=== PATIENT | male | born 1960 | race Caucasian/White ===

== ENCOUNTER → 2018-10-05 | Outpatient (CLI) | payer OTHER ==
[~2018-10-05] MED LIST: ASPIRIN325 PO; BENZONATATE200 MG PO; CHEST CONGESTI400 MG PO; DEPO-TESTO200 MG/1 M IM; DICLOFONO2.5 GM TOP; EFFIENT10 MG PO; GLIPIZIDE XL10 MG PO; GLUCOPHAGE1000 MG PO; GLUCOPHAGE500 MG PO; LISINOPRIL10 MG PO; LISINOPRIL20 MG PO; LOPRESSOR25 PO; NITROGLYCERIN0.4 MG SUBLING; NORCO 7.5-3251 EACH PO; PRINIVIL5 MG PO; PROTONIX40 M1 PO; SIMVASTATIN10 MG PO; VIAGRA50 MG PO; ZOCOR40 MG PO
== END ==
LOC: M.MRI 07:08
DX: S83.272A Complex tear of lateral meniscus, current injury, left knee, initial encounter (principal); S83.242A Other tear of medial meniscus, current injury, left knee, initial encounter; M17.12 Unilateral primary osteoarthritis, left knee; X58.XXXA Exposure to other specified factors, initial encounter; Y93.89 Activity, other specified; Y92.89 Other specified places as the place of occurrence of the external cause; Y99.8 Other external cause status

== ENCOUNTER 2018-10-13 14:05 | Observation (INO) | payer OTHER ==
[~2018-10-13] VITALS: Ht 170.2 cm; Wt 129.3 kg
[~2018-10-13 14:05] MED LIST changes: -CHEST CONGESTI400 MG PO; -NORCO 7.5-3251 EACH PO
[2018-10-13 14:11] VITALS: BP 142/88
[2018-10-13] MEDS ORDERED: NORCO 7.5-3251 EACH PO (14:15)
[2018-10-13 14:36] LABS: ABSOLUTE BASOPHILS 0.1 thou/uL (0.0-0.2); ABSOLUTE EOSINOPHILS 0.2 thou/uL (0.0-0.7); ABSOLUTE LYMPHOCYTES 2.2 thou/uL (0.8-5.3); ABSOLUTE MONOCYTES 0.6 thou/uL (0.0-1.2); ABSOLUTE NEUTROPHILS 4.1 thou/uL (1.6-8.1); BASOPHILS 0.9 %; EOSINOPHILS 3.3 %; HEMATOCRIT 46.1 % (42.0-52.0); HEMOGLOBIN 15.3 gm/dL (14.0-18.0); LYMPHOCYTES 29.8 %; MCH 31.5 pg (26.0-34.0); MCHC 33.2 g/dL (28.0-37.0); MCV 94.8 fL (80.0-100.0); MONOCYTES 8.6 %; MPV 9.3 fl. (7.2-11.1); NUCLEATED RBCS 0 /100WBC; PLATELET COUNT* 217 thou/uL (150-400); POLYS 57.4 %; RBC 4.86 mil/uL (4.50-6.00); RDW-CV 13.7 % (10.5-14.5); WBC 7.2 thou/uL (4.0-11.0)
[2018-10-13 14:53] LABS: ANION GAP 11 mmol/L (7-16); BUN 14 mg/dL (7-18); CALCIUM 9.2 mg/dL (8.5-10.1); CHLORIDE 100 mmol/L (98-107); CO2 26 mmol/L (21-32); CREATININE 0.9 mg/dL (0.6-1.3); GLUCOSE 235 mg/dL (70-99); POTASSIUM 4.3 mmol/L (3.5-5.1); SODIUM 137 mmol/L (136-145)
[2018-10-13 15:04] LABS: ALBUMIN 3.8 g/dL (3.4-5.0); ALKALINE PHOSPHATASE 54 U/L (46-116); LIPASE 122 U/L (73-393); MAGNESIUM 1.7 mg/dL (1.8-2.4); NT-PRO BRAIN NAT PEPTIDE 27 pg/mL (<300); SGOT 18 U/L (15-37); SGPT 39 U/L (30-65); TOTAL BILIRUBIN 0.2 mg/dL (<0.1-1.0); TOTAL PROTEIN 7.7 g/dL (6.4-8.2); TROPONIN-I LEVEL <0.06 ng/mL (<0.06)
[2018-10-13 16:07] LABS: APTT 27.3 Seconds (25.0-31.3); PROTIME 10.3 Seconds (9.20-11.50)
--- NOTE | 2018-10-13 17:35 | EKG ---
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
[2018-10-13 18:49] VITALS: BP 149/79
[2018-10-14] VITALS: BP 127/47
--- NOTE | 2018-10-14 01:15 | NUR ---
PT ALERT ORIENTED. UP AD HUMBERTO IN ROOM. PT RATED PAIN IN CHEST 4/10. HYDROCODONE GIVEN. PT RESTING QUIETLY. BREATH SOUNDS CLEAR. ON RA. TELEMETRY SHOWS SR.
[2018-10-14 04:00] VITALS: BP 118/73
[2018-10-14 08:19] VITALS: BP 127/63
[2018-10-14] MEDS ORDERED: CHEST CONGESTI400 MG PO (08:54)
[2018-10-14 12:35] VITALS: BP 107/69
--- NOTE | 2018-10-14 15:37 | CON ---
[address] [address] CONSULTATION Name: BEBETO BADILLO Room: [address] IN .R.#: [id number] Admission: 10/13/18 Attend Phys: Matt Hein MD Discharge: Date of : 64 Report #: [id number] THIS REPORT FOR: //name// CC: Matt Hein NO PCP DATE OF SERVICE: 10/14/2018 HISTORY OF PRESENT ILLNESS: The patient is a 58-year-old single white male who I was asked to see in the hospital today after he complained of chest pain. The patient apparently underwent coronary artery stenting here in [place] in 2012 when he was seen by Dr. Bolivar. He actually notes he had a repeat heart catheterization about 3 years ago at [facility] by Dr. Singer and told there was no significant restenosis of the stents. He notes that recently, he has had occasional chest pain. He described it as a sharp pain in his chest. It occurs almost every day. It is not related to exertion, meals or lifting. He does become short of breath with exertion. He has had a cough, but no bleeding. Denied any trauma to his chest. He denied palpitations. Apparently recently, he was driving his vehicle and had a brief loss of consciousness. He currently is scheduled to undergo knee surgery in a couple of weeks. As part of his preoperative evaluation, he was noted to have an abnormal ECG. He was admitted. I was asked to see him for further evaluation and treatment. PAST MEDICAL HISTORY: Significant for previous tonsillectomy, hypertension, diabetes, hyperlipidemia. MEDICATIONS: Include aspirin, glipizide, lisinopril, metformin, metoprolol, Protonix, simvastatin. ALLERGIES: He has no known drug allergies. FAMILY HISTORY: Positive for heart disease. SOCIAL HISTORY: He is single, never been . 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 Occasionally drinks alcohol. REVIEW OF SYSTEMS: He is overweight, being 5 feet 7 inches, weighing 280 pounds. He has no history of stroke, asthma, peptic ulcer disease, liver disease, kidney disease, cancer or psychiatric illness. PHYSICAL EXAMINATION: GENERAL: Revealed a large middle-aged male lying in bed, he appeared in no distress. VITAL SIGNS: He had a blood pressure 130/80, pulse 80. He is afebrile. HEENT: He was anicteric. Conjunctivae pink. Mucous [place] [address] CONSULTATION Name: BEBETO BADILLO Room: [address]#: [id number] Admission: 10/13/18 Attend Phys: Matt Hein MD Discharge: Date of : 64 Report #: [id number] NECK: Veins are difficult to assess due to obesity. No carotid bruits. CHEST: Clear to auscultation. CARDIAC: Regular rate and rhythm without murmur or rub. ABDOMEN: Obese, nontender. EXTREMITIES: Had no edema. Posterior tibial pulse 2+ bilaterally. SKIN: Warm, dry. NEUROLOGIC: Nonfocal. LYMPHATIC: No adenopathy. MUSCULOSKELETAL: No joint effusion. LABORATORY DATA: His ECG showed a sinus rhythm with a right bundle branch block and a left anterior fascicular block. His workup so far, he had a chest x-ray performed in the Emergency Room yesterday that showed normal heart size, clear lung ordaz. LABORATORY DATA: Potassium 4.3, creatinine 0.9. Liver function studies were normal. Troponin 0.06. His white blood cell count 7.2, hemoglobin 15.3. IMPRESSION AND RECOMMENDATIONS: 1. Chest pain. Atypical for angina. Recommend dobutamine stress echo. 2. Coronary artery disease. Previous stent. The patient is on an aspirin a day. 3. Diabetes. 4. Hyperlipidemia. The patient is on a statin drug. 5. Hypertension. The patient is on an DONNIE inhibitor and beta fidencio. 6. Obesity. 7. Degenerative joint disease. I would hold off knee surgery until after his cardiac evaluation. <ELECTRONICALLY SIGNED> By: Elder Harris MD, [facility] 10/14/18 1537 0823 1032Dotoniel Harris MD, [facility] /nt
[2018-10-14 16:11] VITALS: BP 107/69
--- NOTE | 2018-10-14 17:05 | EXE ---
[place] [address] STRESS ECHOCARDIOGRAM Name: BEBETO BADILLO Room: [address] IN [facility]#: [id number] Admission: 10/13/18 Attend Phys: aMtt Hein, Discharge: Date of : 64 Date of Service: 10/14/18 1705 Report #: [id number] THIS REPORT FOR: //name// APPROVED REPORT Study performed: 10/14/2018 15:00:27 Exam: Dobutamine Stress Echo Indication: Chest pain, Abnormal EKG Patient Location: In-Patient Stress Nurse: Re Feng RN Room #: [facility] Supervising Physician: Elder Harris MD Status: routine Ht: 5 ft 7 in HR: 72 bpm BP: 129/91 mmHg Rhythm: NSR Medical History Medical History: CAD s/p stent Allergies: No known drug allergies Cardiac Risk Factors: FHX of CAD, HTN, Hyperlipidemia, DM Previous Cardiac Procedures: PCI Procedure The patient underwent a Pharmacological Stress Test using Dobutamine. Blood pressure, heart rate, and EKG were monitored. An Echocardiogram was performed by log data technician in four stages in quad fashion. At peak stress, four selected images were obtained and placed side by side with resting images for comparison. Echo Enhancing Agent Indication: Endocardial border delineation Agent(s) / Amount(s) Used: Optison 10 cc Stress Test Details Stress Test: Pharmacological Stress Test using Dobutamine. Reason for pharmacologic stress test: physical limitation. HR Resting HR: 72 bpm Max Heart Rate (APMHR): 164 bpm Max HR Achieved: 143 bpm Target HR (85% APMHR): 139 bpm % of APMHR: 87 Recovery HR: 98 [place] [address] STRESS ECHOCARDIOGRAM Name: BEBETO BADILLO Room: [address]#: [id number] Admission: 10/13/18 Attend Phys: Matt Hein, Discharge: Date of : 64 Date of Service: 10/14/18 1705 Report #: [id number] HR response to stress: Normal HR response to stress BP Resting BP: 129/91 mmHg Max BP: 186/71 mmHg Recovery BP: 139/93 mmHg BP response to stress: Normal blood pressure response to stress. ECG Resting ECG: Sinus Rhythm, nonspecific ST-T abnormalities Stress ECG: Sinus Rhythm, nonspecific ST-T abnormalities ST Change: Normal Maximum ST Deviation: 0 mm Arrhythmia: None Recovery ECG: Sinus Rhythm, nonspecific ST-T abnormalities Recovery ST Change: Normal Recovery ST Deviation: 0 mm Recovery Arrhythmia: None Clinical Reason for Termination: Completed protocol Stress Symptoms: Chest pain Pre-Stress Echo The resting Echocardiogram showed normal left ventricular contractility with an estimated Ejection Fraction of about 55-60%. Post-Stress Echo The stress Echocardiogram showed normal left ventricular contractility with an estimated Ejection Fraction of about >70%. Conclusion Clinical Response: Indeterminant Stress ECG Response: Indeterminant Stress Echo Images: Non-ischemic low risk dobutamine stress echo for future cardiac events Other Information Study Quality: Fair Technically limited study due [place] [address] STRESS ECHOCARDIOGRAM Name: BEBETO BADILLO Room: [address]#: [id number] Admission: 10/13/18 Attend Phys: Matt Hein, Discharge: Date of : 64 Date of Service: 10/14/181704 Report #: [id number] <Conclusion> low risk dobutamine stress echo for future cardiac events <ELECTRONICALLY SIGNED> By: Elder Harris MD, FACC 10/14/181704 04 04 Elder Harris MD, FACC /INF
== END 2018-10-14 17:27 | disposition home or self-care (01) ==
LOC: M.ERS 14:05 → M.TBA-ER 15:48 → M.2W 15:48
PROVIDERS: Emergency Medicine Emergency Medical Services; ADMIT Internal Medicine
DX: J40 Bronchitis, not specified as acute or chronic (principal); I25.10 Atherosclerotic heart disease of native coronary artery without angina pectoris; I10 Essential (primary) hypertension; M17.12 Unilateral primary osteoarthritis, left knee; E11.9 Type 2 diabetes mellitus without complications; E78.5 Hyperlipidemia, unspecified; R94.31 Abnormal electrocardiogram [ECG] [EKG]; E66.9 Obesity, unspecified; M19.90 Unspecified osteoarthritis, unspecified site; Z98.890 Other specified postprocedural states; Z79.84 Long term (current) use of oral hypoglycemic drugs; Z79.82 Long term (current) use of aspirin; Z95.5 Presence of coronary angioplasty implant and graft; Z79.899 Other long term (current) drug therapy; Z87.891 Personal history of nicotine dependence; Z72.89 Other problems related to lifestyle; Z68.41 Body mass index [BMI] 40.0-44.9, adult

== ENCOUNTER → 2018-10-25 | Outpatient (CLI) | payer OTHER ==
[2018-10-13 08:48] LABS: URINE BILIRUBIN NEGATIVE (Negative); URINE BLOOD NEGATIVE (Negative); URINE CLARITY CLEAR; URINE COLOR YELLOW; URINE GLUCOSE-RANDOM 3+ (Negative); URINE KETONES NEGATIVE (Negative); URINE LEUKOCYTES-REFLEX NEGATIVE (Negative); URINE NITRITE-REFLEX NEGATIVE (Negative); URINE PROTEIN NEGATIVE (Negative); URINE UROBILINOGEN 0.2 E.U./dl (0.2-1.0)
[2018-10-13 08:48] LABS: HEMATOCRIT 46.7 % (42.0-52.0); HEMOGLOBIN 15.6 gm/dL (14.0-18.0); MCH 31.7 pg (26.0-34.0); MCHC 33.4 g/dL (28.0-37.0); MPV 9.4 fl. (7.2-11.1); RBC 4.91 mil/uL (4.50-6.00); RDW-CV 13.6 % (10.5-14.5); WBC 7.3 thou/uL (4.0-11.0)
[2018-10-13 09:07] LABS: ALBUMIN 3.6 g/dL (3.4-5.0); CALCIUM 8.9 mg/dL (8.5-10.1); CREATININE 0.9 mg/dL (0.6-1.3); POTASSIUM 4.1 mmol/L (3.5-5.1); TOTAL BILIRUBIN 0.3 mg/dL (<0.1-1.0); TOTAL PROTEIN 7.6 g/dL (6.4-8.2)
[~2018-10-25] VITALS: Ht 170.2 cm; Wt 127.9 kg
[~2018-10-25] MED LIST changes: +CHEST CONGESTI400 MG PO; +NORCO 7.5-3251 EACH PO
--- NOTE | ~2018-10-25 | EKG ---
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: : 1960 Requested By: Raymundo Anthony Order Number: [id number] Reading MD: Measurements Intervals [place] Rate: 74 P: -26 IN: 207 QRS: -37 QRSD: 133 T: -4 QT: 376 QTc: 418 Interpretive Statements Sinus rhythm Borderline prolonged IN interval Probable left atrial enlargement Right bundle branch block Left ventricular hypertrophy Inferior infarct, old Lateral infarct, acute Anterior ST elevation, probably due to LVH Compared to ECG 11/16/2013 07:45:00 Left ventricular hypertrophy now present Myocardial infarct finding now present ST (T wave) deviation now present [email or web address] By: 0914 0914 Epiphany Epiphany, /EPI
== END ==
LOC: M.PRE → M.LAB 08:11 → M.PRE 09:01 → EDSTATUS 11:20 → M.PRE 11:46
PROVIDERS: Orthopaedic Surgery
DX: Z01.818 Encounter for other preprocedural examination (principal); M17.12 Unilateral primary osteoarthritis, left knee; I51.7 Cardiomegaly; I45.10 Unspecified right bundle-branch block; I25.2 Old myocardial infarction

== ENCOUNTER → 2018-10-31 | Outpatient (CLI) | payer OTHER ==
[~2018-10-31] MED LIST changes: +LANTUS100 UNIT/M SUBQ
== END ==
LOC: M.RAD 12:53
DX: J40 Bronchitis, not specified as acute or chronic (principal); J98.4 Other disorders of lung

== ENCOUNTER → 2018-11-02 | Outpatient (CLI) | payer OTHER ==
[2018-11-02] VITALS (7 sets, daily range): BP systolic 95–117; BP diastolic 57–73
[~2018-11-02] VITALS: Ht 170.2 cm; Wt 130.6 kg
[2018-11-02 08:09] LABS: HEMATOCRIT 46.9 % (42.0-52.0); HEMOGLOBIN 16.1 gm/dL (14.0-18.0); MCH 31.8 pg (26.0-34.0); MCHC 34.3 g/dL (28.0-37.0); MCV 92.8 fL (80.0-100.0); MPV 9.7 fl. (7.2-11.1); RBC 5.05 mil/uL (4.50-6.00); RDW-CV 13.5 % (10.5-14.5); WBC 7.8 thou/uL (4.0-11.0)
[2018-11-02 08:19] LABS: ANION GAP 7 mmol/L (7-16); APTT 26.2 Seconds (25.0-31.3); BUN 20 mg/dL (7-18); CALCIUM 9.3 mg/dL (8.5-10.1); CHLORIDE 100 mmol/L (98-107); CO2 25 mmol/L (21-32); CREATININE 0.9 mg/dL (0.6-1.3); GLUCOSE 207 mg/dL (70-99); POTASSIUM 4.2 mmol/L (3.5-5.1); PROTIME 10.4 Seconds (9.20-11.50); SODIUM 132 mmol/L (136-145)
[2018-11-02 08:32] LABS: ALBUMIN 3.6 g/dL (3.4-5.0); ALKALINE PHOSPHATASE 45 U/L (46-116); SGOT 20 U/L (15-37); SGPT 31 U/L (30-65); TOTAL BILIRUBIN 0.2 mg/dL (<0.1-1.0); TOTAL PROTEIN 7.5 g/dL (6.4-8.2)
[2018-11-02 09:07] LABS: CHOLESTEROL 193 mg/dL (<200); HDL CHOLESTEROL 47 mg/dL (>40); LDL CHOLESTEROL 114 mg/dL (<100); TC:HDL 4.1 Ratio (Not establshd); TRIGLYCERIDE 160 mg/dL (<150); VLDL 32 mg/dL (<40)
[2018-11-02 09:18] LABS: SERUM ASSESSMENT Clear
--- NOTE | 2018-11-02 10:16 | EKG ---
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 11/02/18 1016 0810 0810 Elder Harris MD, FACC /EPI
--- NOTE | 2018-11-02 11:10 | CARD ---
[address] [address] CARDIAC CATH REPORT Name: BEBETO BADILLO Room: [facility]#: [id number] Admission: 11/02/18 Attend Phys: Elder Harris MD, F Discharge: Date of : 64 Report #: [id number] THIS REPORT FOR: //name// APPROVED REPORT Study performed: 11/02/2018 08:08:34 Patient Details Patient Status: Out-Patient Room #: The patient is a 58 year-old male Event Personnel Elder Harris Meter Reader Chief, Adelaida Morales RN Associate Application Developer, Carole Ramey RTR Monitor, Josefa Holley Scrub Procedures Performed Art Access - R femoral artery* Left Heart Cath w/or w/o Coronaries LHC Hemostasis w/ Mynx Indication Chest pain Risk Factors Arterial Hypertension, Hypercholesterolemia, Coronary Artery Disease, Diabetes Previous Procedures/Diagnoses Previous PCI Procedure Narrative The patient was brought electively to the Cardiac Catheterization Laboratory and was prepped and draped in a sterile manner. The right femoral was infiltrated with 2% Lidocaine subcutaneous anesthesia. A 6fr Ultimum Sheath sheath was inserted into the right femoral artery. Coronary angiography was performed using coronary diagnostic catheters. The right coronary system was accessed and visualized with a Diagnostic 6Fr JR4 catheter. The left coronary system was accessed and visualized with a Diagnostic 6Fr JL4 catheter. The left ventricle was accessed and visualized with a Diagnostic 6Fr angled pigtail catheter. Left ventricular/Aortic Valve gradient assessed via catheter pullback. Left ventriculogram was performed in ANNE projection. Pre-demployment femoral angiogram was performed . Closure device was deployed with a 6 Fr Mynx 6Fr/7Fr. The patient tolerated the procedure well and there [place] [address] CARDIAC CATH REPORT Name: JUSTINOBEBETO Room: [facility]#: [id number] Admission: 11/02/18 Attend Phys: Elder Harris MD, F Discharge: Date of : 64 Report #: [id number] the procedure. There was no hematoma. Attempted procedure from the right radial artery. A catheter was advanced into the ascending aorta. However, because of severe tortuosity of the ascending aorta, the catheter could not be torqued easily. Therefore, further efforts were abandoned, and the procedure was performed from the right femoral artery. At the end of the procedure, the sheath was removed from the right radial artery and a vascband applied. Intraoperative Conscious Sedation Sedation start time: 851 Case end Time: 932 Fentanyl 25 mcg Versed 2 mg Fluoro Time: 3.1 minutes Dose: DAP 79957 cGycm2 154 mGy Contrast Type and Amount: Omnipaque 110 ml Coronary Angiography The patient's coronary anatomy is left dominant. Diagnostic Cath Left Main 0% stenosis LAD proximal stent had a 40% restenosis Diagonal 3 small vessel that had an ostial 70% stenosis OM3 small vessel that had a mid 70% stenosis Right Coronary 0% stenosis Ramus 0% stenosis Left Ventriculography The left ventricle is normal in size with normal contractility. The left ventricular ejection fraction is estimated to be 55-60%. Left ventricular wall motion abnormalities are not present. There is 1+ mitral insufficiency. Hemodynamics The aortic pressure is 83/51 mmHg with a mean of 61 mmHg. The left ventricular pressure is 91/10 mmHg with a mean of mmHg. The left ventricular end diastolic pressure is 12 mmHg. There was no gradient across the aortic valve upon pullback. Pullback from the left ventricle to the aorta revealed no gradient across the aortic valve. Conclusion 1. no significant restenosis of stent noted in the proximal lad 2. small vessel disease involving the 3rd diagonal branch and the 3rd [place] [address] CARDIAC CATH REPORT Name: BEBETO BADILLO Room: [facility]#: [id number] Admission: 11/02/18 Attend Phys: Elder Harris MD, F Discharge: Date of : 64 Report #: [id number] 3. normal LV function Recommendations Aggressive Medical Therapy <ELECTRONICALLY SIGNED> By: Elder Harris MD, [facility] 11/02/18 1109 1109 1109David Adry Harris MD, FACC /INF
== END | disposition home or self-care (01) ==
LOC: M.CL 07:10
PROVIDERS: Internal Medicine Cardiovascular Disease
DX: I25.10 Atherosclerotic heart disease of native coronary artery without angina pectoris (principal); R07.9 Chest pain, unspecified; J40 Bronchitis, not specified as acute or chronic; E11.9 Type 2 diabetes mellitus without complications; I10 Essential (primary) hypertension; J32.9 Chronic sinusitis, unspecified; E78.5 Hyperlipidemia, unspecified; Z95.5 Presence of coronary angioplasty implant and graft; Z79.82 Long term (current) use of aspirin; Z79.899 Other long term (current) drug therapy; Z79.84 Long term (current) use of oral hypoglycemic drugs; Z87.891 Personal history of nicotine dependence